=== PATIENT | female | born 1975 | race Hispanic/Latino ===

== ENCOUNTER 2022-11-13 21:49 | Emergency (ER) | payer BC ==
[~2022-11-13] VITALS: Ht 157.5 cm; Wt 120.2 kg
[2022-11-13] MEDS ORDERED: HYDRALAZINE 20MG/ML VIAL ONE (21:55)
[2022-11-13] MEDS ORDERED: LABETALOL 20MG VIAL IV ONE (21:55)
[2022-11-13] MEDS ORDERED: LABETALOL 20MG SYG IV ONE (22:00)
[2022-11-13] MEDS ORDERED: HYDRALAZINE 20MG/ML VIAL IV ONE (22:00)
[2022-11-13 23:41] LABS: BASOPHILS % (AUTO) 0.3 % (0.0-5.0); HEMATOCRIT 38.8 % (36-48); LYMPHOCYTES % (AUTO) 40.9 % (21.0-51.0); MEAN CORPUSCULAR HEMOGLOBIN 26.7 pg (27.0-33.0); MEAN CORPUSCULAR VOLUME 80.8 fL (79-99); MONOCYTES % (AUTO) 5.4 % (3.0-13.0); NEUTROPHILS % (AUTO) 51.1 % (40.0-77.0); PLATELET COUNT (AUTO) 267 K/uL (130-400); RED CELL DISTRIBUTION WIDTH 14.5 % (11.0-15.5); WHITE BLOOD COUNT (AUTO) 9.7 K/uL (4.8-10.8)
[2022-11-13 23:54] LABS: INR 0.94 (0.85-1.15); PROTHROMBIN TIME 10.3 SEC (9.6-11.6)
[2022-11-13 23:55] LABS: PARTIAL THROMBOPLASTIN TIME 23.9 SEC (26.3-35.5)
[2022-11-13 23:58] LABS: CREATININE 0.9 mg/dL (0.5-1.5); POTASSIUM 3.1 mmol/L (3.5-5.1)
[2022-11-14] LABS: ALBUMIN 3.3 g/dL (3.5-5.0); TOTAL PROTEIN, SERUM 7.3 g/dL (6.0-8.3)
[2022-11-14] MEDS ORDERED: KCL 20 MEQ ERTAB PO ONE (00:30)
[2022-11-14 00:39] VITALS: BP 141/82
== END 2022-11-14 00:58 | disposition home or self-care (01) ==
LOC: EDH 21:49
DX: I10 Essential (primary) hypertension (principal); R04.0 Epistaxis
CPT/HCPCS: 99284; 96374; 96375; 80053; 85025; 85610; 85730; 36415; J0360; J3490